=== PATIENT | male | born 1935 | race Caucasian/White ===

== ENCOUNTER 2021-08-08 10:46 | Emergency (ER) | payer MEDICARE, MEDICAID, SELFPAY ==
--- NOTE | ~2021-08-08 | US_ITS ---
EXAMINATION: US VENOUS ULTRASOUND WITH DOPPLER LOWER EXTREMITY, LEFT CLINICAL INFORMATION: Calf pain and tenderness COMPARISON: None TECHNIQUE: Ultrasound of the deep veins is performed from the hip to the calf with compression sonography and color and pulse Doppler assessment. Spectral analysis with color-flow imaging is performed. FINDINGS: There is normal venous compression and respiratory variation and augmented flow. The visualized common femoral vein, superficial femoral vein, profunda femoral vein, popliteal vein, and the trifurcation region shows no evidence of deep venous thrombosis. There is no significant popliteal fossa cyst. Prominent left groin lymph node measuring 3.6 x 0.8 x 1.8 cm. If the patient's symptoms persist, followup ultrasound in 5 days 7 days might be of value to exclude proximal propagation from a non-visualized calf vein. US/US venous duplex LE LT IMPRESSION: No DVT demonstrated in the left lower extremity. Prominent abnormal appearing left groin lymph node. Recommend short interval follow-up.
[2021-08-08 10:57] VITALS: BP 124/70; PULSE 82; RESP 18; TEMP 36.4; O2SAT 99; BMI 27.8
--- NOTE | 2021-08-08 13:16 | ED.GENADULT ---
HPI - General Adult General Chief complaint: Extremity Problem Stated complaint: left foot pain Time Seen by Provider: 08/08/21 13:15 Source: patient Mode of arrival: ambulatory Limitations: no limitations History of Present Illness HPI narrative: 85-year-old male past medical history significant for diabetes presents to the emergency department with complaints of decreased sensation to his lower extremities, he tells me that this is been going on for some time, but is become most noticeable over the past few days. He tells me that his left lower extremity has less sensation than his right. He also reports intermittent paresthesias bilaterally to both lower extremities. His sugars at home have generally been well-controlled however he has had a few readings in the 300s. He is currently taking glipizide and insulin for diabetes. He is followed by a primary care provider however he does not have a plastics process hand. He has no other concerns at this time, he denies chest pain, shortness of breath, fevers, chills, nausea, vomiting, abdominal pain, calf pain, pain with ambulation. Onset (ago): day(s) (2) Location: left, right and lower extremity Radiation: non-radiation Severity: moderate Quality: burning Pain Consistency: constant Relieving factors: none Exacerbating factors: none Associated symptoms: denies other symptoms Treatments prior to arrival: none Related Data Previous Rx's Medication Instructions Recorded gabapentin 100 mg capsule 100 mg PO TID #14 cap 08/08/21 Allergies Allergy/AdvReac Type Severity Reaction Status Date / Time Penicillins Allergy Unknown Verified 08/08/21 10:56 seafood Allergy Unknown Verified 08/08/21 10:56 Review of Systems Review of Systems: Constitutional : No Weight loss, No Fever, No Chills, No Fatigue, No Malaise ENT/Mouth : No sore throat, No Rhinorrhea Eyes: No Eye Pain, No Swelling, No Redness Cardiovascular : No Chest Pain, No SOB, No Dyspnea on Exertion, No Orthopnea, No Edema, No Palpitations Respiratory : No Cough, No Sputum, No Wheezing Gastrointestinal : No Nausea, No Vomiting, No Diarrhea, No Constipation, No abdominal Pain, No Hematochezia, No Melena Genitourinary : No Dysuria, No Urinary Frequency, No Hematuria, Musculoskeletal : No joint pain, No Myalgias, No Joint Swelling Skin : No Skin Lesions, No rash Neuro : No Weakness, + Numbness, No Dizziness, No Headache All other systems reviewed and are negative [facility] Past Medical History Attestation statement: The following information was validated with the patient. Source: old records reviewed and nursing notes reviewed Social History Social History Advance Directives: No Advance Directives Information Provided: Yes Physical Exam Vital Signs: Vital Signs: Last Vital Signs Temp 98.3 F 08/08/21 13:32 Pulse 58 08/08/21 16:05 Resp 14 08/08/21 16:05 BP 161/67 H 08/08/21 16:05 Pulse Ox 98 08/08/21 16:05 BMI result Body Mass Index 27.8 VSS Appearance: Alert.? Oriented X3.? No acute distress.? Head: Normocephalic, atraumatic, no step-offs or deformities Eyes: Pupils equal, round and reactive to light.? ENT: Pharynx normal.? Neck: Normal inspection.? Neck supple.? CVS: Normal heart rate and rhythm.? Pulses normal.? Respiratory: No respiratory distress.? Breath sounds normal.? Abdomen: Soft and nontender.? Skin: Skin warm and dry.? Normal skin color.? Normal skin turgor.? Extremities: No lower extremity edema.? + calf tenderness to left side, negative on the right 5/5 strength to bilateral upper and lower extremities. Patient able to wiggle all toes. Extremities warm with normal color. Back: No midline tenderness, no C-spine tenderness, full range of motion, no CVA tenderness bilaterally Neuro: Oriented X 3.? No motor deficit. + decreased sensation to left toes when compared to right. Sensation intact on right foot/toes. Ambulating with a steady gait. Proprioception intact to bilateral lower extremities Course Reevaluation(s) Reevaluation #1: Labs show no signs of acute infection, no anemia, no acute electrolyte abnormalities. Patient is noted to be slightly dehydrated. POC of 121. Time: 14:00 Reevaluation #2: Patient's ultrasound shows no DVT in the lower extremity. It does show a prominent abnormal lymph node in the left groin. I will let patient know about this, and have him follow-up with her PCP for further evaluation. Patient is ambulating in the hallway well. Continues to have no focal neuro deficits. This is likely diabetic neuropathy. I will discharge patient home on gabapentin 100 mg t.i.d.. Comfortable with discharge home. Time: 16:41 Medical Decision Making [facility] Narrative Medical decision making narrative: [id number] 85-year-old male past medical history significant for diabetes presents to the emergency department with concerns of decreased sensation to bilateral lower extremities, left side worse than the right. For the most part sugars at home have been well controlled. Upon physical exam patient appears well. Lungs are clear. S1-S2 appreciated free of murmurs. Abdomen soft nontender nondistended. There is pain to palpation of left calf, positive Homans sign on the left. Negative on the right. There is decreased sensation to left toes when compared to right. Sensation intact on right foot/toes. Ambulating with a steady gait. No focal neuro deficits. Plan basic labs, US venous duplex to LT side. POC Based off patient history and physical examination this is likely diabetic neuropathy however DVT will be ruled out. Very low suspicion for arterial occlusion, patient's bilateral lower extremities have 2+ pulses, extremities warm, patient able to wiggle all toes without pain. Lab Data Result diagrams: 08/08/21 13:50 08/08/21 13:50 Labs: Lab Results 08/08/21 08/08/21 08/08/21 Range/Units 13:24 13:50 13:50 WBC 11.7 H (4.8-10.8) X10*3/uL RBC 4.76 (4.60-5.80) X10*6/uL Hgb 14.5 (14.0-18.0) g/dl Hct 43.2 (42.0-52.0) % MCV 90.8 (80.0-98.0) fL MCH 30.5 (27.0-33.0) pg MCHC 33.6 (31.0-36.0) g/dl RDW 13.2 (11.0-16.0) % Plt Count 250 (160-400) X10*3/uL MPV 8.8 L (9.4-12.4) fL Immature Gran % (Auto) 0.9 H (0.0-0.4) % Neut % (Auto) 72.3 (45-73) % Lymph % (Auto) 15.1 L (20-40) % [place] % (Auto) 9.6 (2-11) % Eos % (Auto) 1.8 (0-4) % Baso % (Auto) 0.3 (0-2) % Lymph # (Auto) 1.8 (1.2-4.9) X10*3/uL [place] # (Auto) 1.1 (0.1-1.2) X10*3/uL Eos # (Auto) 0.2 (0.0-0.4) X10*3/uL Baso # (Auto) 0.0 (0.0-0.2) X10*3/uL Abs Immat Gran (auto) 0.11 H (0.00-0.03) X10*3/uL Absolute Neuts (auto) 8.5 H (2.0-8.3) x10*3/uL Absolute Nucleated RBC 0.000 (0.0-0.012) X10*3/uL Nucleated RBC % (auto) 0.0 (0.0-0.2) /100WBC Sodium 140 (135-145) mmol/L Potassium 4.7 (3.3-5.1) mmol/L Chloride 106 (96-108) mmol/L Carbon Dioxide 27 (22-29) mmol/L Anion Gap 12 (12-20) BUN 30 H (9-16) mg/dL Creatinine 1.27 (0.5-1.4) mg/dL Estim Creat Clear Calc 39.0 Estimated GFR 54 POC Glucose 121 H (60-115) mg/dL Random Glucose 93 (60-115) mg/dL Calcium 9.2 (8.4-10.2) mg/dL Total Bilirubin 0.3 (0.0-1.0) mg/dL AST 17 (5-37) U/L ALT 22 (0-40) U/L Alkaline Phosphatase 115 (39-117) U/L Total Protein 6.8 (6.5-8.0) g/dL Albumin 3.3 L (3.5-5.0) g/dL Critical Care Time Critical Care Time Critical Care Time: No Discharge Plan Discharge Clinical Impression: Diabetic neuropathy, Inguinal lymphadenopathy Patient Disposition: Home, Self-Care Instructions: Diabetic Peripheral Neuropathy (ED) Additional Instructions: Take your medications as prescribed. Follow-up with your primary care provider this week. Try to find a plastics process hand in the area. Your ultrasound showed a concerning lymphnode in the left groin this requires follow up. Return to the emergency department with new or worsening symptoms. In case of emergency call 911 Prescriptions: New gabapentin 100 mg capsule 100 mg PO TID Qty: 14 RF: 0 Referrals: Physician,Unknown J [Primary Care Provider] - 2 days
[2021-08-08 13:28] LABS: Glucose, Whole Blood 121 mg/dL (60-115)
[2021-08-08 13:32] VITALS: BP 160/79; PULSE 59; RESP 18; TEMP 36.8; O2SAT 99
[2021-08-08 13:55] LABS: MANUAL DIFF FLAG NO
[2021-08-08 14:03] LABS: Basophils Percent Auto 0.3 % (0-2); Eosinophils Absolute Auto 0.2 X10*3/uL (0.0-0.4); Eosinophils Percent Auto 1.8 % (0-4); Hematocrit 43.2 % (42.0-52.0); Hemoglobin 14.5 g/dl (14.0-18.0); Imm Gran Abs Auto 0.11 X10*3/uL (0.00-0.03); Imm Gran Pct Auto 0.9 % (0.0-0.4); Lymphocytes Absolute Auto 1.8 X10*3/uL (1.2-4.9); Lymphocytes Percent Auto 15.1 % (20-40); Mean Corpuscular HGB Conc 33.6 g/dl (31.0-36.0); Mean Corpuscular Hemoglobin 30.5 pg (27.0-33.0); Mean Corpuscular Volume 90.8 fL (80.0-98.0); Mean Platelet Volume 8.8 fL (9.4-12.4); Monocytes Absolute Auto 1.1 X10*3/uL (0.1-1.2); Monocytes Percent Auto 9.6 % (2-11); Neutrophils Absolute Auto 8.5 x10*3/uL (2.0-8.3); Neutrophils Percent Auto 72.3 % (45-73); Platelet Count 250 X10*3/uL (160-400); Red Blood Count 4.76 X10*6/uL (4.60-5.80); Red Cell Distribution Width 13.2 % (11.0-16.0); White Blood Count 11.7 X10*3/uL (4.8-10.8)
[2021-08-08 14:23] LABS: Alanine Aminotransferase 22 U/L (0-40); Albumin Level 3.3 g/dL (3.5-5.0); Alkaline Phosphatase 115 U/L (39-117); Anion Gap 12 (12-20); Aspartate Amino Transferase 17 U/L (5-37); Bilirubin Total 0.3 mg/dL (0.0-1.0); Blood Urea Nitrogen 30 mg/dL (9-16); Calcium 9.2 mg/dL (8.4-10.2); Carbon Dioxide 27 mmol/L (22-29); Chloride 106 mmol/L (96-108); Estimated Glomerular Filt Rate 54; Glucose Random 93 mg/dL (60-115); Potassium 4.7 mmol/L (3.3-5.1); Sodium 140 mmol/L (135-145); Total Protein 6.8 g/dL (6.5-8.0)
[2021-08-08 16:05] VITALS: BP 161/67; PULSE 58; RESP 14; O2SAT 98
== END 2021-08-08 16:55 | disposition home or self-care (01) ==
LOC: HO.ED 13:43
PROVIDERS: Physician Assistant; Emergency Provider Emergency Medicine
DX: E11.40 Type 2 diabetes mellitus with diabetic neuropathy, unspecified (principal); R59.1 Generalized enlarged lymph nodes; M79.672 Pain in left foot; R20.2 Paresthesia of skin; Z79.4 Long term (current) use of insulin
CPT/HCPCS: 36415; 80053; 82947; 85025; 93971; 99284